=== PATIENT | female | born 1960 | race Caucasian/White ===

== ENCOUNTER 2019-04-25 16:28 | Emergency (ER) | payer OTHER ==
--- NOTE | 2019-04-25 16:48 | Emergency Department Record ---
History of Present Illness - General Chief Complaint: Headache Migraine Stated Complaint: [place] Time Seen by Provider: 04/25/19 16:47 Source: Patient - History of Present Illness Initial Comments: The patient states that she got a severe sudden onset 10/10 shooting occipital headache on 04-20-19 which lasted in severity for about 30 minutes. She took tramadol and aleve which began to taken it away fairly well. In the past several years she has had what she would call 'migraine headaches' but never a headache like this one. She is much more comfortable now, but is wondering if she should get a head CT like her sister, who is an RN, suggested. Right now her pain is about a 4/10 severity. She has no nausea, photophobia, fevers, chills, or other symptoms. 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 Today she states her neck does not bother her. Complaint: Headache - Related Data Allergies Allergy/AdvReac Type Severity Reaction Status Date / Time Penicillins Allergy HIVES Verified 04/25/19 16:39 Review of Systems Reviewed: No additional complaints except as noted below Constitutional: Reports: As per HPI. Denies: Chills, Fever, Malaise, Night sweats, Weakness, Weight change Eyes: Reports: As per HPI. Denies: Eye discharge, Eye pain, Photophobia, Vision change ENT: Reports: As per HPI. Denies: Congestion, Dental pain, Ear pain, Epistaxis, Hearing loss, Throat pain Respiratory: Reports: As per HPI. Denies: Cough, Dyspnea, Hemoptysis, Stridor, Wheezes Cardiovascular: Reports: As per HPI. Denies: Arrhythmia, Chest pain, Dyspnea on exertion, Edema, Murmurs, Orthopnea, Palpitations, Paroxysmal nocturnal dyspnea, Rheumatic Fever, Syncope Endocrine: Reports: As per HPI. Denies: Fatigue, Heat or cold intolerance, Polydipsia, Polyuria Gastrointestinal: Reports: As per HPI. Denies: Abdominal pain, Constipation, Diarrhea, Hematemesis, Hematochezia, Melena, Nausea, Vomiting Genitourinary: Reports: As per HPI. Denies: Abnormal menses, Discharge, Dyspareunia, Dysuria, Frequency, Hematuria, Incontinence, Retention, Urgency Musculoskeletal: Reports: As per HPI. Denies: Arthralgia, Back pain, Gout, Joint swelling, Myalgia, Neck pain Skin: Reports: As per HPI. Denies: Bruising, Change in color, Change in hair/nails, Lesions, Pruritus, Rash Neurological: Reports: As per HPI. Denies: Abnormal gait, Confusion, Headache, Numbness, Paresthesias, Seizure, Tingling, Tremors, Vertigo, Weakness Psychiatric: Reports: As per HPI. Denies: Anxiety, Auditory hallucinations, Depression, Homicidal thoughts, Suicidal thoughts, Visual hallucinations Hematological/Lymphatic: Reports: As per HPI. Denies: Anemia, Blood Clots, Easy bleeding, Easy bruising, Swollen glands Past Medical History - SOCIAL HISTORY Smoking Status: Current every day smoker Drug Use: None - RESPIRATORY Hx Respiratory Disorders: No - CARDIOVASCULAR Hx Cardio Disorders: No - NEURO Hx Neuro Disorders: No - GI Hx GI Disorders: No - Hx Genitourinary Disorders: No - ENDOCRINE Hx Endocrine Disorders: No - MUSCULOSKELETAL Hx Musculoskeletal Disorders: No - PSYCH Hx Psych Problems: No Hx Anxiety: Yes Hx Depression: Yes - HEMATOLOGY/ONCOLOGY Hx Hematology/Oncology Disorders: No Family Medical History Hx Heart Disease: Father Hx Stroke: Grandparents Physical Exam - General General Appearance: Alert, Oriented x3, Cooperative, No acute distress (conve rsive, articulate, without photophobia or nausea) - Head Head exam: Normal inspection - Eye Eye exam: Normal appearance, PERRL, EOMI. negative: Conjunctival injection, Nystagmus Pupils: Normal accommodation - ENT ENT exam: Normal exam, Mucous membranes moist, Normal external ear exam, Normal orophraynx, TM's normal bilaterally Ear exam: Normal external inspection. negative: External canal tenderness Nasal Exam: Normal inspection. negative: Discharge, Sinus tenderness Mouth exam: Normal external inspection, Tongue normal Teeth exam: Normal inspection. negative: Dental caries Throat exam: Normal inspection. negative: Tonsillar erythema, Tonsillar exudate - Neck Neck exam: Normal inspection, Full ROM, Other (flexes chin to chest easily without symptoms). negative: Lymphadenopathy, Meningismus, Tenderness - Respiratory Respiratory exam: Normal lung sounds bilaterally. negative: Respiratory distress - Cardiovascular Cardiovascular Exam: Regular rate, Normal rhythm, Normal heart sounds - GI/Abdominal GI/Abdominal exam: Soft, Normal bowel sounds. negative: Tenderness - Rectal Rectal exam: Deferred - exam: Deferred - Extremities Extremities exam: Normal inspection, Full ROM, Normal capillary refill. negative: Calf tenderness, Pedal edema, Tenderness - Back Back exam: Reports: Normal inspection, Full ROM. Denies: CVA tenderness (R), CVA tenderness (L), Muscle spasm, Rash noted, Tenderness - Neurological Neurological exam: Alert, Normal gait, Oriented X3, Reflexes normal - Psychiatric Psychiatric exam: Normal affect, Normal mood - Skin Skin exam: Dry, Intact, Normal color, Warm. negative: Diaphoretic, Petechiae, Rash Course - Reevaluation(s) Reevaluation #1: 04/25/19 18:03 Patient is up to bathroom with no difficulty ambulating, speaking or moving. Awaiting CT. She states her headache has improved after the medication and now is a 10/02. 04/25/19 18:09 Reevaluation #2: @ 1925 patient came out of her room, conversed and laughed with staff and stated she is ready to go home. CT results being read. 04/25/19 19:28 Reevaluation #3: Results discussed. All questions answered. Patient is ready for DC home. 04/25/19 19:33 Medical Decision Making - Management Options MDM Management: No Additional Work-up Planned - Data Complexity MDM Data: Labs Ordered and/or Reviewed, X-Ray Ordered and/or Reviewed (CTa Head and Neck: Negatie for acute abnormality; no occlusive vascular disease or narrowing per radiologist.) - Lab Data Result diagrams: 04/25/19 17:15 04/25/19 17:15 Disposition Disposition: Discharge Clinical Impression: Headache Qualifiers: Headache type: unspecified Headache chronicity pattern: unspecified pattern Intractability: not intractable Qualified Code(s): R51 - Headache Disposition: Home, Self-Care Condition: (1) Good Instructions: Acute Headache (ED), Migraine Headache (ED) Additional Instructions: Home with family. PCP follow up as needed. Quality - Quality Measures Quality Measures: N/A - Blood Pressure Screening Does Patient Have Any of the Following: No Blood Pressure Classification: Pre-Hypertensive BP Reading Systolic Measurement: 140 Diastolic Measurement: 84 Screening for High Blood Pressure: < Pre-Hypertensive BP, F/U Documented > [G8950] Pre-Hypertensive Follow-up Interventions: Follow-up with rescreen every year.
[2019-04-25] MEDS ORDERED: 0.9 % SODIUM CHLORIDE 1,000 ML BAG IV ONE (17:02)
[2019-04-25] MEDS ORDERED: METOCLOPRAMIDE HCL 10 MG/2 ML VIAL IVP ONE (17:02)
[2019-04-25] MEDS ORDERED: DIPHENHYDRAMINE HCL 50 MG/ML VIAL IVP ONE (17:02)
[2019-04-25] MEDS ORDERED: KETOROLAC 30 MG/ML VIAL IVP ONE (17:02)
[2019-04-25 17:21] LABS: ABSOLUTE NEUTROPHIL COUNT 2.63; BASO % 0.2 % (0-6); EOS % 0.6 % (0-6); HEMATOCRIT 39.1 % (35.0-47.0); HEMOGLOBIN 12.2 gm/dl (11.6-16.0); LYMPH % 38.8 % (16-45); MEAN CELL VOLUME 90.3 fl (81-97); MEAN CORPUSCULAR HEMOGLOBIN 28.2 pg (27-33); MEAN CORPUSCULAR HGB CONC 31.2 g/dl (32-36); MEAN PLATELET VOLUME 9.7 fl (7.4-10.4); MONO % 7.4 % (0-9); PLATELET COUNT 211 K/uL (130-400); RED BLOOD COUNT 4.33 M/uL (3.80-5.40); RED CELL DISTRIBUTION WIDTH 12.5 % (11.5-14.5)
[2019-04-25 17:35] LABS: BLOOD UREA NITROGEN 21 mg/dL (6-20); CREATININE 0.7 mg/dL (0.5-0.9); EST GLOMERULAR FILTRATION RATE > 60 mL/min
[2019-04-25 17:36] LABS: TOTAL PROTEIN 6.5 g/dL (6.6-8.7)
[2019-04-25 17:38] LABS: GLUCOSE,RANDOM 93 mg/dL (74-109)
[2019-04-25 17:41] LABS: ALB/GLOB RATIO 2.1 (1.1-1.8); ALBUMIN 4.4 g/dL (4.0-5.0); ALKALINE PHOSPHATASE 86 U/L (35-104); ALT/SGPT 13 U/L (<33); AST/SGOT 21 U/L (10.0-35.0)
--- NOTE | 2019-04-27 13:04 | CT ANGIOGRAM REPORT ---
EXAM: CT SCAN OF THE HEAD WITHOUT CONTRAST AND CTA OF THE NECK AND BRAIN WITH CONTRAST AND WITH POST PROCESSING HISTORY: SUDDEN ONSET SHARP STABBING HEADACHE AND NECK PAIN. TECHNIQUE: Initial precontrast CT imaging of the brain was performed. Subsequent CT angiography of the neck and brain was performed with post processing following the bolus administration of 100 ml of Omnipaque 350. Additional coronal and sagittal maximum intensity projection reformatted images were performed on an independent workstation under concurrent supervision. Comparison: None. FINDINGS: The brain volume is normal. There is no mass, mass effect, intracranial hemorrhage, visible acute infarct, or abnormal extraaxial fluid. The skull is intact. The orbits, sinuses, and mastoids are normal. CTA NECK: Motion artifact is present. Beam hardening artifact is also noted from the patient's dental hardware. The common carotid arteries are normal in caliber. The carotid bifurcations and internal carotid arteries are also normal in caliber. The left vertebral artery is dominant. There is no visible vertebral stenosis or dissection. The external carotid arteries and subclavian arteries appear normal. The intracranial internal carotid arteries are normal in caliber. The anterior and middle cerebral arteries are normal. The anterior communicating artery is mildly prominent. This is likely developmental. No discrete aneurysm is identified. The vertebrobasilar system including both posterior cerebral arteries is normal. IMPRESSION: 1. NO ACUTE INTRACRANIAL ABNORMALITY. 2. MILD MOTION ARTIFACT WITHIN THE CTA EXAM. THERE IS NO EVIDENCE FOR STENOSIS, DISSECTION OR INTRACRANIAL VASCULAR OCCLUSION. JOB NUMBER: [id number] [facility]
== END 2019-04-25 19:41 | disposition home or self-care (01) ==
LOC: ER 16:28
DX: R51 Headache (principal); F17.210 Nicotine dependence, cigarettes, uncomplicated
CPT/HCPCS: 70496; 70498; 80053; 85025; 96374; 96375; 99284; J1200; J1885; J2765